=== PATIENT | male | born 1955 | race African-American/Black ===

== ENCOUNTER 2016-10-22 12:11 | Day surgery (SDC) | payer OTHER ==
[2016-10-21 13:45] LABS: HEMATOCRIT 40.7 % (40.0-51.0); HEMOGLOBIN 14.2 g/dL (13.6-17.8)
[2016-10-21 13:57] LABS: BUN (BLOOD UREA NITROGEN) 21 MG/DL (6-23); CALCIUM, SERUM 9.2 MG/DL (8.5-10.4); CHLORIDE, SERUM 101 MMOL/L (96-112); CO2 (CARBON DIOXIDE) 30 MMOL/L (24-34); CREATININE 1.54 MG/DL (0.70-1.30); GFR AFRICAN AMERICAN 55 ML/MIN (>=60); GFR NON AFRICAN AMERICAN 48 ML/MIN (>=60); GLUCOSE, SERUM 161 MG/DL (60-99); POTASSIUM, SERUM 2.9 MMOL/L (3.5-5.3); SODIUM, SERUM 138 MMOL/L (135-148)
--- NOTE | ~2016-10-22 | OP ---
Record Of Operation [facility] [address] [place] [address] NAME: FCO SAEZ : 51 STATUS : [facility]#: [id number] AGE: 60 ADM/REG DATE : 10/22/16 MR#: [id number] REPORT SERV DATE: 10/22/16 DICTATED BY: VALDEZ MERCADO III DATE: 10/22/16 REPORT STATUS : Draft TRANSCRIBED BY: MODL DATE: 10/22/16 DATE OF PROCEDURE: 10/22/2016 PROCEDURE: Transrectal ultrasound-guided prostate biopsies. PREOPERATIVE DIAGNOSIS: Elevated prostate-specific antigen. POSTOPERATIVE DIAGNOSIS: Elevated prostate-specific antigen. ANESTHESIA: MAC. DESCRIPTION OF PROCEDURE: Following induction of adequate MAC anesthesia, the patient was placed in the left lateral position. Initially, a digital exam was done and the right side felt mildly firm. No specific nodules noted. Transverse and longitudinal scanning was done with the ultrasound probe. There were some heterogeneous changes in the right peripheral zone laterally. Volume was approximately 65 mL. Biopsies were done in the base, mid gland, and apex. The aforementioned area was biopsied x3, corresponding to the firm area in the right side. The patient tolerated the procedure well. There was minimal bleeding. OB/MODL Valdez Mercado III, M.D. / [id number] CC: Liz Monahan III, DO
[~2016-10-22 12:11] MED LIST: ATEN25 PO; CENTRUM PO; EFFEXOR XR150 MG PO; ENDOCET1 TA3 PO; GLUCOPHAGE1000 MG PO; IBU800 PO; LINZESS 145 M145 MCG PO; LIPITOR80 MG PO; METHOC750B PO; NEUR100 PO; NORV10 PO; PRILOSEC40 MG PO; VIAGRA100 MG PO
[2016-10-22 12:39] LABS: BUN (BLOOD UREA NITROGEN) 19 MG/DL (6-23); CALCIUM, SERUM 9.4 MG/DL (8.5-10.4); CHLORIDE, SERUM 105 MMOL/L (96-112); CO2 (CARBON DIOXIDE) 30 MMOL/L (24-34); CREATININE 1.44 MG/DL (0.70-1.30); GFR AFRICAN AMERICAN 60 ML/MIN (>=60); GFR NON AFRICAN AMERICAN 52 ML/MIN (>=60); POTASSIUM, SERUM 3.4 MMOL/L (3.5-5.3); SODIUM, SERUM 144 MMOL/L (135-148)
[2016-10-22 12:40] LABS: GLUCOSE, SERUM 123 MG/DL (60-99)
[2017-03-16] MEDS ORDERED: PCET PO (18:54)
[2017-03-16] MEDS ORDERED: ATEN50 PO (18:54)
[2017-03-16] MEDS ORDERED: CENTRUM PO (18:55)
[2017-03-16] MEDS ORDERED: PRILOSEC40 MG PO (18:55)
[2017-03-16] MEDS ORDERED: FORTAMET1000 MG PO (18:55)
[2017-03-16] MEDS ORDERED: LIPITOR80 MG PO (18:55)
[2017-03-16] MEDS ORDERED: CIP5 PO (18:56)
[2017-03-16] MEDS ORDERED: LINZESS 290 M290 MCG PO (18:56)
[2017-03-16] MEDS ORDERED: DSS PO (18:56)
[2017-03-16] MEDS ORDERED: EFFEXOR XR150 MG PO (18:57)
[2017-03-16] MEDS ORDERED: SPIRO25 PO (18:57)
[2017-03-16] MEDS ORDERED: IBU800 PO (18:57)
[2017-03-16] MEDS ORDERED: NEUR100 PO (18:57)
== END 2016-10-22 18:35 | disposition home or self-care (01) ==
LOC: SDC 12:11
PROVIDERS: Urology
PROC: 0VB03ZX Excision of Prostate, Percutaneous Approach, Diagnostic (ICD-10-PCS; principal; 2016-10-22 13:15)
DX: C61 Malignant neoplasm of prostate (principal); E11.9 Type 2 diabetes mellitus without complications; K21.9 Gastro-esophageal reflux disease without esophagitis; G47.33 Obstructive sleep apnea (adult) (pediatric); F41.9 Anxiety disorder, unspecified; F17.210 Nicotine dependence, cigarettes, uncomplicated; Z79.84 Long term (current) use of oral hypoglycemic drugs; Z79.899 Other long term (current) drug therapy; Z96.1 Presence of intraocular lens; Z98.41 Cataract extraction status, right eye; Z98.42 Cataract extraction status, left eye; Z98.890 Other specified postprocedural states
CPT/HCPCS: 76872; 76942; 80048; 82962; 85014; 85018; 88305; 93005